=== PATIENT | female | born 1935 ===

== ENCOUNTER 2021-09-29 13:41 | Inpatient (IN) ==
[2021-09-29] MEDS ORDERED: Acetaminophen IV 1 GM/100ML 100 ML IV PRN (14:00)
[2021-09-29] MEDS ORDERED: Heparin 5000 UNITS/ML 1 mL VIAL SUBCUT SCH (14:00)
[2021-09-29] MEDS ORDERED: Dextrose 50% Syringe 50 ml 25 GM/50 ML SYRINGE IV PUSH PRN (14:03)
[2021-09-29] MEDS: Lactated Ringers 1000 ml BAG 1,000 ML IV SCH ×2 (14:27→22:27)
[2021-09-29 14:38] LABS: Urine Appearance Clear; Urine Bilirubin Negative (Negative); Urine Blood Negative (Negative); Urine Color Yellow; Urine Glucose 3+(>=500 mg/dL) (Negative); Urine Ketones Negative (Negative); Urine Nitrite Negative (Negative); Urine Protein Negative (Negative); Urine Specific Gravity 1.044 (1.002-1.030); Urine Urobilinogen Negative (Negative)
[2021-09-29 14:49] LABS: Hematocrit 20 % (35-47); Hemoglobin 6.7 g/dL (12.0-16.0); Mean Corpuscular HGB Conc 33 g/dL (31-36); Mean Corpuscular Hemoglobin 33 pg (27-31); Mean Corpuscular Volume 101 fL (80-97); Mean Platelet Volume 8.8 fL (7.4-10.4); Platelet Count 211 10^3/uL (150-450); Red Cell Distribution Width 14 % (10-15); White Blood Count 25.5 10^3/uL (3.5-10.8)
[2021-09-29 14:51] LABS: ABS Basophils 0.1 10^3/ul (0-0.2); ABS Lymphocytes 0.7 10^3/ul (1.0-4.8); ABS Monocytes 1.7 10^3/ul (0-0.8); ABS Neutrophils 23.1 10^3/ul (1.5-7.7); Lymphocyte % 2.6 %
[2021-09-29 14:55] LABS: INR 1.14 (0.86-1.15)
[2021-09-29] MEDS ORDERED: LACTATED RINGERS IV SCH (15:00)
[2021-09-29 15:28] LABS: ALT 11 U/L (7-52); Albumin 3.1 g/dL (3.2-5.2); Albumin/Globulin Ratio 1.5 (1-3); Alkaline Phosphatase 38 U/L (35-149); Blood Urea Nitrogen 23 mg/dL (6-24); Calcium 7.6 mg/dL (8.6-10.3); Chloride 110 mmol/L (101-111); Globulin 2.1 g/dL (2-4); Glucose 333 mg/dL (70-100); Lipase 19 U/L (11.0-82.0); Sodium 134 mmol/L (135-145); Total Protein 5.2 g/dL (6.4-8.9); eGFR CKD-EPI 57.3 (>60)
[2021-09-29] MEDS ORDERED: fentaNYL 100 mcg/2 ml 50 MCG/ML VIAL ONE ×3 (15:29→18:02)
[2021-09-29 15:31] LABS: Macrocytosis 1+
[2021-09-29 15:32] LABS: CO2 Carbon Dioxide 13 mmol/L (22-32)
[2021-09-29 15:33] LABS: Hypochromasia 1+
[2021-09-29 15:46] LABS: Anion Gap 11 mmol/L (2-11)
[2021-09-29] MEDS ORDERED: fentaNYL 100 mcg/2 ml 50 MCG/ML VIAL IV SLOW PU ONE (15:56)
[2021-09-29] MEDS ORDERED: Adenosine 3 MG/ML 2 ml VIAL (6 mg) ONE (16:11)
[2021-09-29] MEDS ORDERED: Diltiazem IV push/loading dose 5 MG/ML 5 ML vial (25 mg) ONE (16:21)
[2021-09-29] MEDS: metroNIDAZOLE IV 500 MG/100ML 500 MG/100 ML BAG IVPB SCH ×2 (16:31→23:06)
[2021-09-29] MEDS ORDERED: PHENYLEPHRINE DRIP IVPREMIX 50 MG/250 ML BAG IV ONE (16:53)
[2021-09-29] MEDS ORDERED: Rocuronium 50 mg VIAL 10 mg/ml 5 ml VIAL (50 mg) ONE (17:06)
[2021-09-29] MEDS ORDERED: Adenosine 3 MG/ML 2 ml VIAL (6 mg) IV PUSH ONE ×2 (17:13)
[2021-09-29] MEDS ORDERED: Lidocaine 1% MPF 5 ML VIAL ONE (17:14)
[2021-09-29] MEDS ORDERED: Lidocaine 1% w EPI 1:200,000 SDV 30 ML VIAL ONE (17:14)
[2021-09-29 17:15] LABS: Albumin 2.6 g/dL (3.2-5.2); Albumin/Globulin Ratio 1.6 (1-3); Calcium 7.4 mg/dL (8.6-10.3); Direct Bilirubin Redraw 0.1 mg/dL (0.03-0.18); Globulin 1.6 g/dL (2-4); Magnesium 1.7 mg/dL (1.9-2.7); Potassium 4.1 mmol/L (3.5-5.0); Total Bilirubin 0.4 mg/dL (0.2-1.0); Total Protein 4.2 g/dL (6.4-8.9)
[2021-09-29] MEDS: Cefepime 1 GM in Dextrose 1 GM/50 ML BAG IV SCH (17:22)
[2021-09-29] MEDS ORDERED: PHENYLEPHRINE DRIP IVPREMIX 50 MG/250 ML BAG IV SCH (18:00)
[2021-09-29] MEDS ORDERED: EPHEDrine (Pressors) 50 MG/ML VIAL ONE (18:10)
[2021-09-29] MEDS ORDERED: Succinylcholine 200 mg VIAL 20 mg/ml 10 ml VIAL (200 mg) ONE (18:10)
[2021-09-29] MEDS ORDERED: Ondansetron 4 mg VIAL 2 MG/ML 2 ml VIAL ONE (18:10)
[2021-09-29] MEDS ORDERED: Dexamethasone IV 4 MG/ML VIAL 1 ml VIAL ONE (18:10)
[2021-09-29] MEDS ORDERED: Propofol 10 MG/ML 20 ML BTL ONE (18:10)
[2021-09-29] MEDS ORDERED: Phenylephrine IV 10 MG/ML 1 ml VIAL ONE (18:11)
[2021-09-29] MEDS ORDERED: Lidocaine 2% PF 5 ML VIAL ONE (18:11)
[2021-09-29] MEDS ORDERED: Propofol 10 mg/ml 100 ML BTL 100 ML ONE (19:26)
[2021-09-29] MEDS: Propofol 10 mg/ml 100 ML BTL 100 ML IV SCH (19:30)
[2021-09-29 23:09] LABS: Hematocrit 28 % (35-47); Hemoglobin 9.2 g/dL (12.0-16.0); Mean Corpuscular HGB Conc 33 g/dL (31-36); Mean Corpuscular Hemoglobin 31 pg (27-31); Mean Corpuscular Volume 93 fL (80-97); Mean Platelet Volume 8.4 fL (7.4-10.4); Platelet Count 111 10^3/uL (150-450); Red Blood Count 2.97 10^6 /uL (3.70-4.87); Red Cell Distribution Width 15 % (10-15); White Blood Count 20.6 10^3/uL (3.5-10.8)
[2021-09-29 23:12] LABS: ABS Lymphocytes 0.6 10^3/ul (1.0-4.8); ABS Monocytes 1.8 10^3/ul (0-0.8); ABS Neutrophils 18.1 10^3/ul (1.5-7.7)
[2021-09-29 23:49] LABS: Calcium 7.1 mg/dL (8.6-10.3); Potassium 4.1 mmol/L (3.5-5.0); eGFR CKD-EPI 70.2 (>60)
[2021-09-30] MEDS ORDERED: NORMOSOL-R pH 7.4 1000 mL BAG 500 ML IV ONE (03:30)
[2021-09-30] MEDS: metroNIDAZOLE IV 500 MG/100ML 500 MG/100 ML BAG IVPB SCH ×3 (05:13→21:21)
[2021-09-30 05:35] LABS: Hematocrit 25 % (35-47); Hemoglobin 8.5 g/dL (12.0-16.0); Mean Corpuscular HGB Conc 34 g/dL (31-36); Mean Corpuscular Hemoglobin 31 pg (27-31); Mean Corpuscular Volume 91 fL (80-97); Mean Platelet Volume 8.8 fL (7.4-10.4); Platelet Count 116 10^3/uL (150-450); Red Blood Count 2.78 10^6 /uL (3.70-4.87); Red Cell Distribution Width 15 % (10-15); White Blood Count 22.2 10^3/uL (3.5-10.8)
[2021-09-30 05:36] LABS: ABS Lymphocytes 0.8 10^3/ul (1.0-4.8); ABS Monocytes 1.6 10^3/ul (0-0.8); ABS Neutrophils 19.8 10^3/ul (1.5-7.7); Lymphocyte % 3.4 %
[2021-09-30] MEDS: Propofol 10 mg/ml 100 ML BTL 100 ML IV SCH (06:00)
[2021-09-30 06:01] LABS: Calcium 7.1 mg/dL (8.6-10.3); Magnesium 1.6 mg/dL (1.9-2.7); eGFR CKD-EPI 73.5 (>60)
[2021-09-30] MEDS ORDERED: Magnesium Sulfate 2 gm BAG 2 GM/50 ML BAG IVPB ONE (06:26)
[2021-09-30] MEDS: Lactated Ringers 1000 ml BAG 1,000 ML IV SCH ×2 (07:11→15:39)
[2021-09-30] MEDS ORDERED: fentaNYL 100 mcg/2 ml 50 MCG/ML VIAL IV SLOW PU PRN (07:49)
[2021-09-30 12:43] LABS: Hematocrit 24 % (35-47); Hemoglobin 7.9 g/dL (12.0-16.0)
[2021-09-30] MEDS: Cefepime 1 GM in Dextrose 1 GM/50 ML BAG IV SCH (16:30)
[2021-09-30] MEDS ORDERED: Dextrose 50% Syringe 50 ml 25 GM/50 ML SYRINGE IV PUSH PRN (16:52)
[2021-09-30] MEDS: Pantoprazole VIAL 40 MG VIAL IV SCH (17:30)
[2021-09-30 17:40] LABS: Hematocrit 22 % (35-47); Hemoglobin 7.3 g/dL (12.0-16.0)
[2021-09-30 22:52] LABS: Hematocrit 21 % (35-47)
[2021-10-01 01:29] LABS: Hematocrit 20 % (35-47); Hemoglobin 6.7 g/dL (12.0-16.0)
[2021-10-01 05:54] LABS: ABS Lymphocytes 1.3 10^3/ul (1.0-4.8); ABS Neutrophils 11.3 10^3/ul (1.5-7.7); Hematocrit 25 % (35-47); Hemoglobin 8.3 g/dL (12.0-16.0); Lymphocyte % 9.4 %; Mean Corpuscular HGB Conc 33 g/dL (31-36); Mean Corpuscular Hemoglobin 30 pg (27-31); Mean Corpuscular Volume 91 fL (80-97); Mean Platelet Volume 9.1 fL (7.4-10.4); Platelet Count 107 10^3/uL (150-450); Red Blood Count 2.73 10^6 /uL (3.70-4.87); Red Cell Distribution Width 15 % (10-15); White Blood Count 13.7 10^3/uL (3.5-10.8)
[2021-10-01] MEDS: metroNIDAZOLE IV 500 MG/100ML 500 MG/100 ML BAG IVPB SCH ×3 (06:10→22:49)
[2021-10-01 06:20] LABS: Magnesium 2.3 mg/dL (1.9-2.7); eGFR CKD-EPI 70.2 (>60)
[2021-10-01] MEDS: Pantoprazole VIAL 40 MG VIAL IV SCH (08:39)
[2021-10-01] MEDS ORDERED: Lactated Ringers 1000 ml BAG 1,000 ML IV SCH (10:26)
[2021-10-01] MEDS: Cefepime 1 GM in Dextrose 1 GM/50 ML BAG IV SCH (16:30)
[2021-10-01] MEDS ORDERED: D5W 250 ml BAG 250 ML IV ONE (23:56)
[2021-10-02] MEDS: metroNIDAZOLE IV 500 MG/100ML 500 MG/100 ML BAG IVPB SCH ×3 (05:51→21:36)
[2021-10-02 06:20] LABS: ABS Eosinophils 0.1 10^3/ul (0-0.6); ABS Lymphocytes 1.3 10^3/ul (1.0-4.8); ABS Monocytes 0.7 10^3/ul (0-0.8); ABS Neutrophils 6.7 10^3/ul (1.5-7.7); Eosinophil % 0.9 %; Hematocrit 23 % (35-47); Hemoglobin 7.9 g/dL (12.0-16.0); Lymphocyte % 15.1 %; Mean Corpuscular HGB Conc 34 g/dL (31-36); Mean Corpuscular Hemoglobin 31 pg (27-31); Mean Corpuscular Volume 92 fL (80-97); Mean Platelet Volume 8.4 fL (7.4-10.4); Nucleated Red Blood Cells % 0.1; Platelet Count 115 10^3/uL (150-450); Red Blood Count 2.52 10^6 /uL (3.70-4.87); Red Cell Distribution Width 16 % (10-15); White Blood Count 8.9 10^3/uL (3.5-10.8)
[2021-10-02 06:29] LABS: Albumin 2.2 g/dL (3.2-5.2); Calcium 7.4 mg/dL (8.6-10.3); Magnesium 2.2 mg/dL (1.9-2.7); Potassium 3.7 mmol/L (3.5-5.0); Total Bilirubin 0.5 mg/dL (0.2-1.0)
[2021-10-02 06:35] LABS: Albumin/Globulin Ratio 1.3 (1-3); Globulin 1.7 g/dL (2-4); Total Protein 3.9 g/dL (6.4-8.9); eGFR CKD-EPI 67.2 (>60)
[2021-10-02] MEDS: Pantoprazole VIAL 40 MG VIAL IV SCH (09:17)
[2021-10-02] MEDS: Cefepime 1 GM in Dextrose 1 GM/50 ML BAG IV SCH (16:33)
[2021-10-02] MEDS: Pravastatin 20 mg TAB (NF) PO SCH (21:35)
[2021-10-03] MEDS: metroNIDAZOLE IV 500 MG/100ML 500 MG/100 ML BAG IVPB SCH ×3 (06:15→21:50)
[2021-10-03 06:25] LABS: Hematocrit 26 % (35-47); Hemoglobin 8.9 g/dL (12.0-16.0); Mean Corpuscular HGB Conc 34 g/dL (31-36); Mean Corpuscular Hemoglobin 32 pg (27-31); Mean Corpuscular Volume 93 fL (80-97); Mean Platelet Volume 8.7 fL (7.4-10.4); Platelet Count 141 10^3/uL (150-450); Red Blood Count 2.77 10^6 /uL (3.70-4.87); Red Cell Distribution Width 16 % (10-15); White Blood Count 9.8 10^3/uL (3.5-10.8)
[2021-10-03 06:45] LABS: Calcium 7.3 mg/dL (8.6-10.3); Potassium 3.7 mmol/L (3.5-5.0); eGFR CKD-EPI 74.6 (>60)
[2021-10-03] MEDS: Cefepime 1 GM in Dextrose 1 GM/50 ML BAG IV SCH (18:18)
[2021-10-03] MEDS: Pravastatin 20 mg TAB (NF) PO SCH (21:46)
[2021-10-04] MEDS: metroNIDAZOLE IV 500 MG/100ML 500 MG/100 ML BAG IVPB SCH ×3 (06:11→21:03)
[2021-10-04 06:50] LABS: Calcium 7.3 mg/dL (8.6-10.3); Potassium 3.4 mmol/L (3.5-5.0); eGFR CKD-EPI 84.2 (>60)
[2021-10-04] MEDS ORDERED: KCL 20 MEQ/100 ML IVPREMIX 20 MEQ/100 ML BAG IV ONE (07:05)
[2021-10-04 07:56] LABS: Magnesium 1.7 mg/dL (1.9-2.7)
[2021-10-04] MEDS ORDERED: Lactated Ringers 500 ml BAG 500 ML IV ONE (09:14)
[2021-10-04] MEDS ORDERED: Magnesium Sulfate 2 gm BAG 2 GM/50 ML BAG IVPB ONE (09:19)
[2021-10-04 10:59] LABS: Hematocrit 27 % (35-47); Hemoglobin 8.9 g/dL (12.0-16.0); Mean Corpuscular HGB Conc 33 g/dL (31-36); Mean Corpuscular Hemoglobin 31 pg (27-31); Mean Corpuscular Volume 93 fL (80-97); Mean Platelet Volume 8.3 fL (7.4-10.4); Platelet Count 165 10^3/uL (150-450); Red Blood Count 2.86 10^6 /uL (3.70-4.87); Red Cell Distribution Width 15 % (10-15); White Blood Count 12.2 10^3/uL (3.5-10.8)
[2021-10-04] MEDS: Cefepime 1 GM in Dextrose 1 GM/50 ML BAG IV SCH (17:42)
[2021-10-04] MEDS: Pravastatin 20 mg TAB (NF) PO SCH (21:03)
[2021-10-05] MEDS: metroNIDAZOLE IV 500 MG/100ML 500 MG/100 ML BAG IVPB SCH (05:42)
[2021-10-05 06:13] LABS: Hematocrit 26 % (35-47); Hemoglobin 8.6 g/dL (12.0-16.0); Mean Corpuscular HGB Conc 33 g/dL (31-36); Mean Corpuscular Hemoglobin 31 pg (27-31); Mean Corpuscular Volume 93 fL (80-97); Mean Platelet Volume 8.3 fL (7.4-10.4); Platelet Count 174 10^3/uL (150-450); Red Blood Count 2.77 10^6 /uL (3.70-4.87); Red Cell Distribution Width 15 % (10-15); White Blood Count 12.2 10^3/uL (3.5-10.8)
[2021-10-05 06:46] LABS: Calcium 7.3 mg/dL (8.6-10.3); Magnesium 2.1 mg/dL (1.9-2.7); Potassium 3.9 mmol/L (3.5-5.0); eGFR CKD-EPI 83.7 (>60)
[2021-10-05 12:15] LABS: Phosphorus 2.3 mg/dL (2.5-5.0)
[2021-10-05] MEDS: Pravastatin 20 mg TAB (NF) PO SCH (20:57)
[2021-10-06 04:47] LABS: ABS Eosinophils 0.2 10^3/ul (0-0.6); ABS Lymphocytes 1.7 10^3/ul (1.0-4.8); ABS Monocytes 1.1 10^3/ul (0-0.8); ABS Neutrophils 7.4 10^3/ul (1.5-7.7); Eosinophil % 1.7 %; Hematocrit 27 % (35-47); Hemoglobin 9.1 g/dL (12.0-16.0); Lymphocyte % 16.5 %; Mean Corpuscular HGB Conc 34 g/dL (31-36); Mean Corpuscular Hemoglobin 32 pg (27-31); Mean Corpuscular Volume 94 fL (80-97); Mean Platelet Volume 8.1 fL (7.4-10.4); Platelet Count 213 10^3/uL (150-450); Red Blood Count 2.85 10^6 /uL (3.70-4.87); Red Cell Distribution Width 15 % (10-15); White Blood Count 10.4 10^3/uL (3.5-10.8)
[2021-10-06 05:09] LABS: Calcium 7.7 mg/dL (8.6-10.3); Potassium 4.1 mmol/L (3.5-5.0); eGFR CKD-EPI 85.8 (>60)
[2021-10-06] MEDS: Pravastatin 20 mg TAB (NF) PO SCH (21:32)
[2021-10-06] MEDS: Heparin 5000 UNITS/ML 1 mL VIAL SUBCUT SCH (21:32)
[2021-10-07] MEDS: Heparin 5000 UNITS/ML 1 mL VIAL SUBCUT SCH ×2 (08:26→20:48)
[2021-10-07] MEDS ORDERED: Polyethylene Glycol 3350 17 GM PACKET PO PRN (12:08)
[2021-10-07] MEDS: Pravastatin 20 mg TAB (NF) PO SCH (20:48)
[2021-10-08 06:00] LABS: Hematocrit 28 % (35-47); Hemoglobin 9.6 g/dL (12.0-16.0); Mean Corpuscular HGB Conc 34 g/dL (31-36); Mean Corpuscular Hemoglobin 32 pg (27-31); Mean Corpuscular Volume 95 fL (80-97); Mean Platelet Volume 7.6 fL (7.4-10.4); Platelet Count 281 10^3/uL (150-450); Red Blood Count 2.99 10^6 /uL (3.70-4.87); Red Cell Distribution Width 16 % (10-15); White Blood Count 10.7 10^3/uL (3.5-10.8)
[2021-10-08 06:12] LABS: Calcium 8.5 mg/dL (8.6-10.3); Potassium 4.7 mmol/L (3.5-5.0); eGFR CKD-EPI 83.9 (>60)
[2021-10-08] MEDS: Heparin 5000 UNITS/ML 1 mL VIAL SUBCUT SCH (09:15)
[2021-10-08 10:59] LABS: Rapid COVID-19 Molecular Undetected (Undetected)
[2021-10-08 11:08] VITALS: BP 132/80
== END 2021-10-08 13:20 | DRG 329 ==
LOC: ICU 13:41 → SUATTDRO 13:41 → SSU 10-02 01:23
PROVIDERS: ADMIT Internal Medicine; ATTEND Internal Medicine